=== PATIENT | male | born 1980 | race Caucasian/White ===

== ENCOUNTER 2019-12-08 11:30 | Emergency (ER) | payer BC, OTHER ==
[2019-12-08] MEDS ORDERED: Albuterol/Ipratropium 3.0-0.5 MG/3 ML Neb Soln NEB ONE (11:53)
--- NOTE | 2019-12-08 12:05 | EDM.PDOC ---
ED HPI GENERAL MEDICAL PROBLEM - General Chief Complaint: Respiratory Problem Stated Complaint: SOB Time Seen by Provider: 12/08/19 12:00 Source of Information: Reports: Patient History Limitations: Reports: No Limitations - History of Present Illness INITIAL COMMENTS - FREE TEXT/NARRATIVE: Presents with productive cough x several months, worse x 3 days associated with chest tightness and SOB. Using an Albuterol MDI w/o improvement. Patient does smoke cigarettes, but does not vape. No prior h/o chronic lung disease, however usually is diagnosed with pneumonia annually. He denies fevers or known exposure to COVID-19. Duration: Day(s): (3) Location: Reports: Chest Quality: Reports: Other (tightness) Severity: Mild Worsens with: Reports: Other (activity) - Related Data Allergies Allergy/AdvReac Type Severity Reaction Status Date / Time [facility] Allergy Airway Verified 12/08/19 11:47 Tightness Home Meds: Home Meds Albuterol Sulfate [Albuterol Sulfate Hfa] 2 inh INH Q4HR PRN #1 hfa.[email or web address] 12/07 [Rx] Doxycycline Monohydrate 100 mg PO BID #20 capsule 12/08/19 [Rx] predniSONE 60 mg PO DAILY 5 Days #15 tab 12/08/19 [Rx] Past Medical History Respiratory History: Reports: Pneumonia, Recurrent Social & Family History - Tobacco Use Smoking Status *Q: Current Every Day Smoker Tobacco Use Within Last Twelve Months: Cigarettes ED ROS GENERAL - Review of Systems Review Of Systems: Comprehensive ROS is negative, except as noted in HPI. ED EXAM, GENERAL - Physical Exam Exam: See Below Exam Limited By: No Limitations General Appearance: Alert, WD/WN, No Apparent Distress Ears: Normal External Exam Nose: Normal Inspection Throat/Mouth: No Airway Compromise Head: Atraumatic, Normocephalic Neck: Full Range of Motion Respiratory/Chest: No Respiratory Distress, Decreased Breath Sounds, Wheezing Cardiovascular: Regular Rate, Rhythm, No Murmur Back Exam: Full Range of Motion Extremities: Normal Range of Motion Neurological: Alert, Normal Cognition Psychiatric: Normal Affect, Normal Mood Skin Exam: Warm, Dry, Intact Course - Vital Signs Last Recorded V/S: Last Vital Signs Temp 36.5 C 12/08/19 11:30 Pulse 90 12/08/19 12:00 Resp 16 12/08/19 11:30 BP 140/83 12/08/19 11:30 Pulse Ox 100 12/08/19 11:30 - Orders/Labs/Meds Orders: Active Orders 24 hr Category Date Time Status RT Aerosol Therapy [RC] ASDIRECTED Care 12/08/19 11:53 Active CXR [Chest 2V] [CR] Stat Exams 12/08/19 11:51 Taken CORONAVIRUS COVID-19, TRE Stat Lab 12/08/19 11:58 Received INPATIENT Stat Lab 12/08/19 11:58 Received Isolation [COMM] Routine Oth 12/08/19 11:53 Ordered Meds: Medications Discontinued Medications Generic Name Dose Route Start Last Admin Trade Name Freq PRN Reason Stop Dose Admin Albuterol/Ipratropium 3 ml 12/08/19 11:53 12/08/19 12:14 Duoneb 3.0-0.5 Mg/3 Ml NEB 12/08/19 11:54 3 ml ONETIME ONE Administration - Radiology Interpretation Free Text/Narrative:: CXR: No infiltrates, no pneumothorax, scarring vs. small left pleural effusion. (ED provider interpretation) - Re-Assessments/Exams Free Text/Narrative Re-Assessment/Exam: 12/08/19 13:05 Symptoms improved after Duoneb. Aeration and wheeze has improved. Departure - Departure Time of Disposition: 13:06 Disposition: Home, Self-Care 01 Condition: Good Clinical Impression: Bronchospasm with bronchitis, acute - Discharge Information *PRESCRIPTION DRUG MONITORING PROGRAM REVIEWED*: No *COPY OF PRESCRIPTION DRUG MONITORING REPORT IN PATIENT RESHMA: Not Applicable Prescriptions: Albuterol Sulfate [Albuterol Sulfate Hfa] 2 inh INH Q4HR PRN #1 hfa.aer.ad PRN Reason: Wheezing Doxycycline Monohydrate 100 mg PO BID #20 capsule predniSONE 60 mg PO DAILY 5 Days #15 tab Instructions: Acute Bronchitis, Adult, [id number], Steps to Quit Smoking, [id number] Referrals: Anthony Conner MD [Primary Care Provider] - Forms: ED Department Discharge, ED Return to Work/School Form Additional Instructions: Fill the prescriptions for Doxycycline, Prednisone, and Albuterol at [facility] and take as directed. Self isolate at home until your COVID- 19 test comes back. If it's negative, you may return to work. If positive call [place] [facility] for further instructions. Follow up with your primary physician in 3 days if symptoms don't improve. Return to the ER if symptoms worsen. Sepsis Event Note - Evaluation Sepsis Screening Result: No Definite Risk - Focused Exam Vital Signs: Vital Signs Temp Pulse Resp BP Pulse Ox 12/08/19 12:00 90 12/08/19 11:30 36.5 C 80 16 140/83 100 Date Exam was Performed: 12/08/19 Time Exam was Performed: 13:02 - My Orders Last 24 Hours: My Active Orders 12/08/19 11:51 CXR [Chest 2V] [CR] Stat 12/08/19 11:53 RT Aerosol Therapy [RC] ASDIRECTED Isolation [COMM] Routine 12/08/19 11:58 CORONAVIRUS COVID-19, TRE Stat INPATIENT Stat - Assessment/Plan Last 24 Hours: My Active Orders 12/08/19 11:51 CXR [Chest 2V] [CR] Stat 12/08/19 11:53 RT Aerosol Therapy [RC] ASDIRECTED Isolation [COMM] Routine 12/08/19 11:58 CORONAVIRUS COVID-19, TRE Stat INPATIENT Stat
--- NOTE | 2019-12-09 09:55 | CR ---
INDICATION: Cough. CHEST, TWO VIEWS: Portable AP upright view of the chest 12/07/19 was compared with 11/09/17 and revealed the heart to remain normal in size and shape and appearance. The aorta is calcified in the arch area to a slightly greater extent with mild tortuosity. Overlying EKG leads are noted. Linear density is again noted at the lower lung field on the left, most likely fibrotic in nature. A definite active infiltrate or effusion was not identified. However, there is mild bronchial wall cuffing at the lung bases which may be on the basis of fibrosis and/or active peribronchial disease, and should be correlated clinically. IMPRESSION: 1. No definite acute process. However, there is bronchial wall cuffing at the lung bases - correlate clinically. 2. ASD aorta. 3. Probable fibrotic strand at the left lower lung field - recurrent subsegmental atelectasis - linear atelectasis could also be present. MTDD
== END 2019-12-08 13:32 | disposition home or self-care (01) ==
LOC: FB.ED 11:30
DX: J20.9 Acute bronchitis, unspecified (principal); F17.210 Nicotine dependence, cigarettes, uncomplicated; Z88.8 Allergy status to other drugs, medicaments and biological substances
CPT/HCPCS: 71046; 87804; 87804-59; 94640; 99285-25; J7620-GY; U0002